=== PATIENT | female | born 1985 | race Caucasian/White ===

== ENCOUNTER 2016-12-02 12:23 | Outpatient (CLI) | payer OTHER | END 2016-12-02 23:59 | DX: Z36 Encounter for antenatal screening of mother (principal) ==

== ENCOUNTER 2018-07-19 08:00 | Outpatient (CLI) | payer OTHER | END 2018-07-19 08:01 | disposition home or self-care (01) | LOC: LAB.R 08:00 | PROVIDERS: ATTEND Registered Nurse | DX: Z11.3 Encounter for screening for infections with a predominantly sexual mode of transmission (principal) | CPT/HCPCS: 87491; 87591 ==

== ENCOUNTER 2018-08-08 10:16 | Outpatient (CLI) | payer OTHER | END 2018-08-08 10:17 | disposition home or self-care (01) | LOC: LAB 10:16 | PROVIDERS: ATTEND Registered Nurse | DX: E28.2 Polycystic ovarian syndrome (principal) | CPT/HCPCS: 36415; 84144; 84443 ==

== ENCOUNTER 2018-09-06 16:05 | Outpatient (CLI) | payer OTHER | END 2018-09-06 16:06 | disposition home or self-care (01) | LOC: LAB 16:05 | PROVIDERS: ATTEND Registered Nurse | DX: E28.2 Polycystic ovarian syndrome (principal) | CPT/HCPCS: 36415; 84144 ==